=== PATIENT | female | born 1960 | race Caucasian/White ===

== ENCOUNTER 2019-11-03 09:32 | Emergency (ER) | payer OTHER ==
[2019-11-03 09:40] VITALS: TEMP 98.9; BMI 28.0
[2019-11-03] MEDS ORDERED: KETOROLAC TROMETHAMINE 30 MG/1 ML VIAL IVPUSH ONE (09:53)
[2019-11-03] MEDS ORDERED: CYCLOBENZAPRINE HCL 10 MG TABLET (FP) PO ONE (09:53)
--- NOTE | 2019-11-03 09:55 | PDOC ---
History of Present Illness - General Chief Complaint: Pain Stated Complaint: LEFT SHOULDER PAIN, NUMBNESS TO ARM Time Seen by Provider: 11/03/19 09:34 History Source: Patient Exam Limitations: No Limitations - History of Present Illness Initial Comments: 11/03/19 09:54 59y F hx of anxiety, asthma, herniated disks presents with L shoulder pain for the past 6 days. Pt has been working from home, and developed gradual onset of L shoulder pain, today, she noticed some numbness to the L arm so presents to the ED for evaluation. The patient saw her primary care doctor who prescribed second benzathine and nabumetone, But has been making her sleepy so she has not been taking consistently. She denies any recent traumas, injuries, heavy lifting, new exercising. States that the pain is worse in the left shoulder blade and shoulder area, And is somewhat improved when she is bent over with her hands hanging down. Denies any worsening of the pain with exertion, chest pain, shortness of breath, diaphoresis, nausea, vomiting, abdominal pain. Is a history of herniated disks but has never had any This or tingling associated with this before. Denies any other symptoms such as diarrhea, dysuria, leg swelling, dyspnea on exertion. PMD: Dr. Sanches Past History - Medical History Allergies/Adverse Reactions: Allergies Allergy/AdvReac Type Severity Reaction Status Date / Time No Known Drug Allergies Allergy Verified 11/03/19 09:33 Home Medications: Ambulatory Orders Albuterol Sulfate Inhaler - [Ventolin Hfa Inhaler -] 1 - 2 inh PO Q4H PRN 11/03/19 Cyclobenzaprine HCl [Flexeril -] 10 mg PO TID PRN 11/03/19 Nabumetone 750 mg PO BID 11/03/19 Asthma: Yes COPD: No Other medical history: herniated disk - neck, lumbar - Surgical History Appendectomy: Yes - Reproductive History Is Patient Now?: No - Psycho-Social/Smoking History Smoking History: Current every day smoker Have you smoked in the past 12 months: Yes Number of Cigarettes Smoked Daily: 6 Information on smoking cessation initiated: Yes - Substance Abuse Hx (Audit-C & DAST Scrn) How often the patient has a drink containing alcohol: 2-4 times / month Score: In Men: 4 or > Positive; In Women: 3 or > Positive: 2 Screen Result (Pos requires Nsg. Audit-10AR): Negative In the last yr the pt used illegal drug/Rx for NonMed reason: No Score: Yes response is considered Positive: 0 Screen Result (Positive result requires Nsg. DAST-10): Negative Review of Systems - Review of Systems Able to Perform ROS?: Yes Comments:: 11/03/19 10:03 Constitutional - no reported Fever, Chills, HEENT: no reported vision changes, sore throat Respiratory: no reported cough, sob, hemoptysis Cardiac: no reported chest pain, palpitations, light headedness, leg swelling Abd/GI: no reported abd pain, nausea, vomiting, blood per rectum, melena, diarrhea : no reported dysuria, frequency, discharge Musculskelatal - +shoulder pain no reported back pain, joint swelling skin - no reported bruising, erythema, rash neurological: +L arm tingling no reported headache, focal weakness, ataxia, hematologic: no reported easy bruising, easy bleeding *Physical Exam - Vital Signs Last Vital Signs Temp Pulse Resp BP Pulse Ox 98.9 F 94 H 18 156/97 99 11/03/19 09:32 11/03/19 09:32 11/03/19 09:32 11/03/19 09:32 11/03/19 09:32 - Physical Exam 11/03/19 10:04 GENERAL: The patient is awake, alert, and fully oriented, Nontoxic - in no acute distress. HEAD: Normocephalic, atraumatic. EYES: extraocular movements intact, sclera anicteric, conjunctiva clear. ENT: Normal voice, Moist mucous membranes. NECK: Normal range of motion, supple LUNGS: Breath sounds equal, clear to auscultation bilaterally. No wheezes, no rhonchi, no rales. HEART: Regular rate and rhythm, normal S1 and S2 without murmur, rub or gallop. ABDOMEN: Soft, nontender, No guarding, no rebound. No CVA tenderness MSK: Mild diffuse tenderness in the left trapezius region, Tingling exacerbated by neck flexion, Sensation intact bilaterally, strength intact and symmetric EXTREMITIES: Normal range of motion, no edema. NEUROLOGICAL: No facial assymetry, Normal speech, normal gait PSYCH: Normal mood, normal affect. SKIN: Warm, Dry, normal turgor, Heart Score/ECG Review - ECG Impressions Comment:: 11/03/19 10:06 Twelve-lead EKG was performed and reviewed by me. There is normal sinus rhythm with a normal rate. Rate of 73 The axis is normal. The intervals are normal. There is normal R wave progression There are no ST or T wave abnormalities. Impression: Normal twelve-lead EKG ED Treatment Course - LABORATORY CBC & Chemistry Diagram: 11/03/19 10:10 11/03/19 10:10 - RADIOLOGY Radiology Studies Ordered: Category Date Time Status CHEST PA & LAT [RAD] Stat Radiology 11/03/19 09:53 Ordered Medical Decision Making - Medical Decision Making 11/03/19 10:05 Suspect that her symptoms may be secondary to muscle spasm possibly herniated disc Will obtain EKG and troponin to screen for cardiac cause The patient with Flexeril, Toradol (she has not taken any medications today) discussed strategies to improve her posture when working on her computer at home will reassess Discharge - Discharge Information Problems reviewed: Yes Clinical Impression/Diagnosis: Radiculopathy Qualifiers: Spinal region: cervical Qualified Code(s): M54.12 - Radiculopathy, cervical region Condition: Improved Disposition: HOME - Admission No - Follow up/Referral - Patient Discharge Instructions Patient Printed Discharge Instructions: DI for Cervical Radiculopathy Additional Instructions: Return to the emergency department immediately with ANY new, persistent or worsening symptoms During numbness or tingling, focal weakness or any other concerns. TAke the flexeril as needed. You can take the motrin every 4 hours for pain. Use heat for comfort. You MUST call and follow up with your doctor in 4-5 days for further evaluation of your symptoms. Results were discussed with you. Please make sure your doctor reviews the results of your emergency evaluation. Your Emergency Department visit is not complete without a follow up with your doctor. Print Language: BELARUSIAN - Post Discharge Activity
[2019-11-03] MEDS ORDERED: CYCLOBENZAPRINE HCL 10 MG TABLET (FP) ONE (09:56)
[2019-11-03] MEDS ORDERED: KETOROLAC TROMETHAMINE 30 MG/1 ML VIAL ONE (09:56)
[2019-11-03 10:45] LABS: BASO % 0.8 % (0-2.0); EOS % 3.3 % (0-4.5); HEMATOCRIT 41.7 % (32.4-45.2); HEMOGLOBIN 13.6 GM/dl (10.7-15.3); LYMPH % 24.5 % (8-40); MCH 32.2 pg (25.7-33.7); MCHC 32.6 g/dl (32.0-36.0); MEAN CELL VOLUME 98.7 fl (80-96); MEAN PLT VOLUME 7.9 fl (7.5-11.1); MONO % 7.1 % (3.8-10.2); NEUT % 64.3 % (42.8-82.8); PLATELET COUNT 282 K/MM3 (134-434); RBC 4.22 M/mm3 (3.60-5.2); RDW 11.8 % (11.6-15.6); WHITE BLOOD COUNT 5.4 K/mm3 (4.0-10.8)
[2019-11-03 10:47] LABS: ALBUMIN 4.1 g/dl (3.4-5.0); BILIRUBIN,TOTAL 0.6 mg/dl (0.2-1); CREATININE 0.6 mg/dl (0.55-1.3); POTASSIUM 4.3 mmol/L (3.5-5.1); TOT PROT 6.7 g/dl (6.4-8.2)
[2019-11-03 12:04] VITALS: BP 122/82; PULSE 78
--- NOTE | 2019-11-03 14:09 | EKG ---
Test Reason : Blood Pressure : / mmHG Vent. Rate : 073 BPM Atrial Rate : 073 BPM P-R Int : 138 ms QRS Dur : 088 ms QT Int : 410 ms P-R-T Axes : 040 048 046 degrees QTc Int : 451 ms NORMAL SINUS RHYTHM NORMAL ECG NO PREVIOUS ECGS AVAILABLE Confirmed by ZORAIDA WANG MD ([id number]) on 11/03/2019 2:08:49 PM Referred By: KANDI ZHANG Confirmed By:ZORAIDA WANG MD
== END 2019-11-03 11:55 | disposition home or self-care (01) ==
LOC: FER 09:32
PROC: 3E0233Z Introduction of Anti-inflammatory into Muscle, Percutaneous Approach (ICD-10-PCS; principal; 2019-11-03)
DX: M54.12 Radiculopathy, cervical region (principal)
CPT/HCPCS: 36415; 71046-TC-FY; 80053; 82550; 84484; 85025; 93005; 96372; 99285-25

== ENCOUNTER 2021-06-27 06:06 | Day surgery (SDC) | payer SELFPAY ==
[2021-06-20 15:23] VITALS: BMI 26.6
[2021-06-27] MEDS ORDERED: BACITRACIN/POLYMYXIN OPH OINT 3.5 GM TUBE ONE (07:08)
[2021-06-27] MEDS ORDERED: BACITRACIN 15 GM TUBE TOPICAL OINTMENT ONE (07:08)
[2021-06-27] MEDS ORDERED: POVIDONE-IODINE 5% OPHTHALMIC PREP 30 ML SOLUTION ONE (07:08)
[2021-06-27] MEDS ORDERED: LIDOCAINE 1%/EPI 1:100000 (20 ML MULTI DOSE VIAL) ONE (07:09)
[2021-06-27] MEDS ORDERED: ROCURONIUM BROMIDE 50 MG/5 ML SYRINGE ONE ×2 (07:24→09:14)
[2021-06-27] MEDS ORDERED: BSS (NA/CA/MG/K) BALANCED SALT SOLUTION OPHTH SOLN 15 ML BOTTLE ONE (07:35)
[2021-06-27] MEDS ORDERED: PROPOFOL 1,000,000 MCG/100 ML VIAL ONE ×2 (07:37→10:45)
[2021-06-27] MEDS ORDERED: MIDAZOLAM HCL 2 MG/2 ML SINGLE DOSE VIAL ONE ×2 (07:52→10:48)
[2021-06-27] MEDS ORDERED: KETAMINE HCL 200 MG/20 ML VIAL ONE (08:12)
[2021-06-27] MEDS ORDERED: GLYCOPYRROLATE 0.2 MG/1 ML VIAL ONE (11:20)
[2021-06-27] MEDS ORDERED: NEOSTIGMINE METHYLSULFATE 0.5 MG/1 ML - 10 ML MDV ONE (11:20)
[2021-06-27] MEDS ORDERED: ceFAZolin SODIUM 1 GM VIAL ONE (11:53)
[2021-06-27] MEDS ORDERED: ONDANSETRON 4 MG/2 ML VIAL ONE ×2 (11:53→13:13)
[2021-06-27] MEDS ORDERED: LIDOCAINE HCL/PF 2% SDV 5ML VIAL ONE (11:53)
[2021-06-27] MEDS ORDERED: BENZOIN/ALOE VERA/STORAX/TOLU 30 ML TINCTURE ONE (11:57)
[2021-06-27] MEDS ORDERED: oxyCODONE HCL 5 MG TABLET PO PRN ×4 (12:14→12:23)
[2021-06-27] MEDS ORDERED: ONDANSETRON 4 MG/2 ML VIAL IVPUSH PRN (12:14)
[2021-06-27] MEDS ORDERED: LACTATED RINGERS SOLUTION 1,000 ML IV SCH ×2 (12:15→12:30)
[2021-06-27] MEDS ORDERED: ONDANSETRON 4 MG/2 ML VIAL IVPB PRN (12:23)
[2021-06-27] MEDS ORDERED: ALBUTEROL SO4 HFA INHALER IH PRN (12:24)
[2021-06-27] MEDS ORDERED: FENTANYL CITRATE/PF 50 MCG/ML VIAL ONE (13:14)
[2021-06-27 13:57] VITALS: TEMP 97.8
[2021-06-27] MEDS ORDERED: DOCUSATE SODIUM 100 MG CAPSULE (FP) PO SCH (14:00)
[2021-06-27] MEDS ORDERED: MOMETASONE FUROATE 220 MCG/IH INHALER IH SCH (22:00)
[2021-06-28 13:34] VITALS: BP 114/68; PULSE 83
== END 2021-06-27 15:59 | disposition home or self-care (01) ==
LOC: FASU 06:06
PROVIDERS: ATTEND Plastic Surgery
PROC: 080Q0ZZ Alteration of Right Lower Eyelid, Open Approach (ICD-10-PCS; 2021-06-27)
PROC: 080P0ZZ Alteration of Left Upper Eyelid, Open Approach (ICD-10-PCS; 2021-06-27)
PROC: 080N0ZZ Alteration of Right Upper Eyelid, Open Approach (ICD-10-PCS; 2021-06-27)
PROC: 080R0ZZ Alteration of Left Lower Eyelid, Open Approach (ICD-10-PCS; principal; 2021-06-27 08:32)
DX: H02.89 Other specified disorders of eyelid (principal)
CPT/HCPCS: 94760

== ENCOUNTER 2022-09-03 15:57 | Emergency (ER) | payer OTHER ==
[2022-09-03 16:20] VITALS: BP 123/87; PULSE 90; RESP 18; TEMP 98.7; BMI 26.6
[2022-09-03] MEDS ORDERED: predniSONE 20 MG TABLET (UD) PO ONE ×2 (17:07→17:15)
[2022-09-03] MEDS ORDERED: predniSONE 20 MG TABLET (UD) ONE (17:07)
== END 2022-09-03 17:24 | disposition home or self-care (01) ==
LOC: FER 15:57
DX: T78.40XA Allergy, unspecified, initial encounter (principal)
CPT/HCPCS: 99283-25